=== PATIENT | male | born 1970 | race African-American/Black ===

== ENCOUNTER 2019-11-01 18:00 | Emergency (ER) | payer SELFPAY ==
[2019-11-01 18:50] LABS: ABSOLUTE EOSINOPHILS # (AUTO) 0.3 10^3/uL (0.0-0.6); ABSOLUTE MONOCYTES (AUTO) 0.7 10^3/uL (0.1-1.4); ABSOLUTE NEUT (AUTO) 2.8 10^3/uL (1.7-8.2); BASOPHILS % (AUTO) 0.7 % (0-2); EOSINOPHILS % (AUTO) 5.3 % (0-6); HEMATOCRIT 47.8 % (37.9-51.0); HEMOGLOBIN 16.4 g/dL (13.5-17.0); LYMPHOCYTES % (AUTO) 34.4 % (13-45); MEAN CORPUSCULAR HEMOGLOBIN 28.4 pg (27.0-33.4); MEAN CORPUSCULAR HGB CONC 34.4 g/dL (32.0-36.0); MEAN CORPUSCULAR VOLUME 83 fl (80-97); MONOCYTES % (AUTO) 11.4 % (3-13); PLATELET COUNT 274 10^3/uL (150-450); RED BLOOD COUNT 5.78 10^6/uL (4.35-5.55); RED CELL DISTRIBUTION WIDTH 15.4 % (11.5-14.0); SEGMENTED NEUTROPHILS % (AUTO) 48.2 % (42-78); TOTAL CELLS COUNTED % (AUTO) 100 %; WHITE BLOOD COUNT 5.8 10^3/uL (4.0-10.5)
[2019-11-01 19:02] LABS: ALKALINE PHOSPHATASE 95 U/L (38-126); ANION GAP 7 (5-19); ASPARTATE AMINO TRANSFERASE 41 U/L (17-59); BILIRUBIN,TOTAL 0.8 mg/dL (0.2-1.3); BLOOD UREA NITROGEN 22 mg/dL (7-20); CALCIUM 9.2 mg/dL (8.4-10.2); CARBON DIOXIDE 26 mmol/L (22-30); CHLORIDE 104 mmol/L (98-107); CREATINE KINASE 127 U/L (55-170); GLUCOSE 220 mg/dL (75-110); POTASSIUM 4.5 mmol/L (3.6-5.0); TOTAL PROTEIN 7.5 g/dL (6.3-8.2)
--- NOTE | 2019-11-01 19:04 | ER Document Report ---
ED General - General Chief Complaint: Shortness Of Breath Stated Complaint: SHORTNESS OF BREATH Notes: Patient is a 49-year-old -[place] male with a history of untreated hypertension, morbid obesity with a family history of CAD and diabetes who presents to the emergency department the chief complaint of shortness of breath. Patient reports over the past 5 to 6 months developing a shortness of breath. He states it was gradual in onset. Reports is been progressive slowly over the past 5 to 6 months. He states if he is at rest he feels okay but with any slight movements or exertion he becomes very short of breath. He is unsure of his routine blood pressures. Notes they are elevated not treated. He admits to smoking cigars. Mother has diabetes father of a heart attack just recently in his 60s. Patient denies any chest pain, cough or hemoptysis. No recent sick contacts. No fever. No rash, vomiting or diarrhea. No abdominal pain or dis tention. Admits to some associated intermittent lower extremity edema bilaterally. - Related Data Home Medications: Noncomplaint with HTN Past Medical History - Social History Smoking Status: Current Some Day Smoker Frequency of alcohol use: Occasional Family History: CAD, DM, Hypertension Patient has homicidal ideation: No - Past Medical History Cardiac Medical History: Reports: Hx Hypertension Review of Systems - Review of Systems Notes: As per HPI otherwise negative Physical Exam - Vital signs Vitals: Temp 98.4 F 11/01/19 18:18 - General General appearance: Appears well, Alert In distress: Mild - HEENT Head: Normocephalic, Atraumatic Eyes: Normal Conjunctiva: Normal Extraocular movements intact: Yes Pupils: PERRL Ears: Normal External canal: Normal Tympanic membrane: Normal Nasal: Normal Mouth/Lips: Normal Pharynx: Normal Neck: Normal, Supple - Respiratory Respiratory status: No respiratory distress Chest status: Nontender Breath sounds: Other - Moving air throughout. No abnormal breath sounds auscultated however limited by body habitus Chest palpation: Normal - Cardiovascular Rhythm: Regular Heart sounds: Normal auscultation - Abdominal Inspection: Morbidly Obese Bowel sounds: Normal Tenderness: Nontender - Extremities General upper extremity: Normal inspection, Nontender, Normal color, Normal ROM, Normal temperature General lower extremity: Normal inspection, Nontender, Normal color, Normal ROM, Normal temperature, Normal weight bearing. No: Sue's sign - Neurological Neuro grossly intact: Yes Cognition: Normal Orientation: AAOx4 Roger Coma Scale Eye Opening: Spontaneous Erie Coma Scale Verbal: Oriented Roger Coma Scale Motor: Obeys Commands Erie Coma Scale Total: 15 Speech: Normal Motor strength normal: LUE, RUE, LLE, RLE Sensory: Normal - Psychological Associated symptoms: Normal affect, Normal mood - Skin Skin Temperature: Warm Skin Moisture: Dry Skin Color: Normal Course - Re-evaluation Re-evalutation: 11/01/19 20:57 No evidence of heart failure or fluid overload. There is a suspicious area in the left lower lobe possibly pneumonia however the patient's history is more consistent with would likely be atelectasis but given the presence of his new onset diabetes with an elevated blood glucose of 220 we will treat as pneumonia. We discussed the new findings of diabetes and will start the patient on low- dose metformin. His EKG showed evidence of LVH consistent with strain secondary to chronically untreated hypertension. Also evidence of mild kidney injury in relation likely to the uncontrolled hypertension and a new diabetes. Patient will be started on low-dose lisinopril/HCTZ. He reports his mom has a blood pressure cuff and he will borrow it and monitor his pressures throughout the day keeping a log book over the next 2 weeks. We discussed dietary changes and exercise regimens. He will follow-up with community care clinic for continued ongoing evaluation and medical management. Discussed possibility of reversal of diabetes with proper exercise and dietary regimen. Likely could also be an improvement in his hypertension if he loses weight and maintains a more healthy lifestyle though he likely will require antihypertensives for life due to essential hypertension. His kidney function will need to be monitored by his primary doctor. I explained all this to the patient in great details including possible side effects of the new medications including lisinopril with angio edema and or chronic dry cough. Possible side effects of overtreated hypertension and the need to discontinue the medication and report to the ER immediately. He understands all risks versus benefit of treatment and wishes to proceed. Counseled him regarding the close and timely importance of outpatient follow-up and advised to return here or any ER immediately with any new, persistent or worsening symptoms. He verbalized understood and agreed. 11/01/19 21:09 Based on patient's presenting vitals with an O2 sat of 96 on room air he is PERC negative. This was considered and felt to be unlikely in the clinical setting. - Vital Signs Vital signs: Temp Pulse Resp BP Pulse Ox 98.4 F 96 20 148/101 H 92 11/01/19 18:19 11/01/19 18:19 11/01/19 18:19 11/01/19 18:19 11/01/19 18:19 - Laboratory Result Diagrams: 11/01/19 18:24 11/01/19 18:24 Laboratory results interpreted by me: 11/01/19 11/01/19 18:24 18:24 RBC 5.78 H RDW 15.4 H BUN 22 H Creatinine 1.62 H Est GFR ( Amer) 55 L Est GFR (MDRD) Non-Af 46 L Glucose 220 H Discharge - Discharge Clinical Impression: Uncontrolled hypertension, Elevated serum creatinine, LVH (left ventricular hypertrophy) Diabetes mellitus with hyperglycemia Qualifiers: Diabetes mellitus type: type 2 Diabetes mellitus [employer] insulin use: without mcc use Qualified Code(s): E11.65 - Type 2 diabetes mellitus with hyperglycemia Pneumonia Qualifiers: Pneumonia type: due to unspecified organism Laterality: left Lung location: lower lobe of lung Qualified Code(s): J18.9 - Pneumonia, unspecified organism Condition: Stable Disposition: HOME, SELF-CARE Instructions: Atelectasis ([facility]), Diabetes ([facility]), High Blood Pressure, Requiring Treatment ([facility]), Pneumonia ([facility]) Additional Instructions: You have been diagnosed today with uncontrolled hypertension likely causing secondary effects of stress on the kidneys. You have also been found to be diabetic per your lab results today. You have a questionable area on x-ray that could be pneumonia versus atelectasis. Given the background of diabetes she will be treated as pneumonia for the time being. We will start you on low-dose lisinopril/HCTZ for blood pressure and low-dose metformin for diabetes. Please follow-up with the community care clinic for reevaluation of these conditions and for further outpatient management and care. Please do not hesitate to return here or any ER immediately with any new, persistent or worsening symptoms. Prescriptions: Amoxicillin 875 mg PO BID #20 tablet Metformin HCl [Glucophage 500 mg Tablet] 500 mg PO BID #60 tablet Lisinopril/Hydrochlorothiazide [Lisinopril-Hctz 10-12.5 mg Tab] 1 each PO DAILY #30 tablet Azithromycin [Zithromax 250 mg Tablet] 250 mg PO ASDIR PRN #6 tablet PRN Reason: [facility]errals: [facility] [NO LOCAL MD] - Follow up as needed
[2019-11-01 19:12] LABS: INTERNATIONAL RATION (INR) 0.94; PROTHROMBIN TIME 12.6 SEC (11.4-15.4)
[2019-11-01 19:13] LABS: PARTIAL THROMBOPLASTIN TIME 25.2 SEC (23.5-35.8)
[2019-11-01 19:14] LABS: CREATINE KINASE MB 1.49 ng/mL (<4.55)
--- NOTE | 2019-11-01 19:17 | RADIOLOGY REPORT (SQ) ---
EXAM DESCRIPTION: CHEST SINGLE VIEW IMAGES COMPLETED DATE/TIME: 11/01/2019 6:46 pm REASON FOR STUDY: Shortness of breath COMPARISON: None. EXAM PARAMETERS: NUMBER OF VIEWS: One view. TECHNIQUE: Single frontal radiographic view of the chest acquired. RADIATION DOSE: NA LIMITATIONS: None. FINDINGS: LUNGS AND PLEURA: Low lung volumes. Cannot exclude opacification in the left base. MEDIASTINUM AND HILAR STRUCTURES: No masses. Contour normal. HEART AND VASCULAR STRUCTURES: Heart normal in size. Normal vasculature. BONES: No acute findings. HARDWARE: None in the chest. OTHER: No other significant finding. IMPRESSION: Low lung volumes. Cannot exclude left lower lobe pneumonia. TECHNICAL DOCUMENTATION: JOB ID: [id number] 2010 [employer]- All Rights Reserved Reading location - IP/workstation name: [email or web address]
[2019-11-01 19:31] LABS: TROPONIN I < 0.012 ng/mL
--- NOTE | 2019-11-01 20:44 | EKG REPORT ---
SEVERITY:- ABNORMAL ECG - SINUS RHYTHM LEFT VENTRICULAR HYPERTROPHY INFERIOR INFARCT, AGE INDETERMINATE : Confirmed by: Esvin Molina MD 01-Nov-2019 20:43:38
[2019-11-01 21:27] VITALS: BP 168/109
== END 2019-11-01 21:29 | disposition home or self-care (01) ==
LOC: ER 18:00
DX: J18.9 Pneumonia, unspecified organism (principal); I51.7 Cardiomegaly; E11.65 Type 2 diabetes mellitus with hyperglycemia; I10 Essential (primary) hypertension; R94.4 Abnormal results of kidney function studies; R06.02 Shortness of breath; R60.0 Localized edema; E66.01 Morbid (severe) obesity due to excess calories; I25.10 Atherosclerotic heart disease of native coronary artery without angina pectoris; F17.210 Nicotine dependence, cigarettes, uncomplicated
CPT/HCPCS: 36415; 71045; 80053; 82550; 82553; 83880; 84484; 85025; 85610; 85730; 93005; 93010; 99285

== ENCOUNTER 2020-03-02 10:33 | Emergency (ER) | payer SELFPAY ==
[2020-03-02 10:46] VITALS: BP 183/117
[2020-03-02] MEDS ORDERED: LISINOPRIL 10 MG TABLET PO ONE (11:14)
[2020-03-02] MEDS ORDERED: HYDROCHLOROTHIAZIDE 12.5 MG TABLET PO ONE (11:14)
--- NOTE | 2020-03-02 11:20 | ER Document Report ---
HPI - HPI Time Seen by Provider: 03/02/20 11:09 Pain Level: 5 Notes: 50-year-old male patient presenting to the emergency department chief complaint of dental pain. Patient reports pain started last night. He denies any drainage from the area. Denies any fever or chills. He reports pain is to the right lower side. He does have a history of hypertension, states he is out of his medications. - ROS Systems Reviewed and Negative: Yes All other systems reviewed and negative - EENT Notes: Dental pain - REPRODUCTIVE Reproductive: DENIES: : Past Medical History - General Information source: Patient - Social History Smoking Status: Former Smoker Chew tobacco use (# tins/day): No Frequency of alcohol use: None Drug Abuse: None Family History: CAD, DM, Hypertension Patient has homicidal ideation: No - Past Medical History Cardiac Medical History: Reports: Hx Hypertension Endocrine Medical History: Reports: Hx Diabetes Mellitus Type 2 Vertical Provider Document - CONSTITUTIONAL Notes: PHYSICAL EXAMINATION: GENERAL: Well-appearing, well-nourished and in no acute distress. HEAD: Atraumatic, normocephalic. EYES: Pupils equal round extraocular movements intact, conjunctiva are normal. ENT: Erythema surrounding tooth #30, tooth mostly eroded away, no john abscess, no trismus. NECK: Normal range of motion LUNGS: No respiratory distress Musculoskeletal: Normal range of motion NEUROLOGICAL: Normal speech, normal gait. PSYCH: Normal mood, normal affect. SKIN: Warm, Dry, normal turgor, no rashes or lesions noted. Course - Re-evaluation Re-evalutation: Presentation is most consistent with likely an infected tooth. Airway is patent. Vitals within normal limits. Patient is able swallow without any difficulty. There is no significant facial swelling. No evidence of Clifford angina, apical abscess, or airway obstruction. Patient will be started on antibiotics. I've instructed to follow-up with dentistry as earliest ability for definitive management. At this time will discharge with return precautions and follow-up recommendations. Verbal discharge instructions given a the bed side and opportunity for questions given. Medication warnings reviewed. Patient is in agreement with this plan and has verbalized understanding of return precautions and the need for primary care follow-up in the next 24-72 hours. Patient's blood pressure and diabetes medications were also refilled for him today. I stressed the importance of him following up with a primary care provider or [facility]. Patient verbalized understanding and agreement with this plan. - Vital Signs Vital signs: Temp Pulse Resp BP Pulse Ox 98.7 F 94 20 183/117 H 97 03/02/20 11:12 03/02/20 10:44 03/02/20 10:44 03/02/20 10:44 03/02/20 10:44 Discharge - Discharge Clinical Impression: Dental abscess Hypertension Qualifiers: Hypertension type: unspecified Qualified Code(s): I10 - Essential (primary) hypertension Condition: Stable Disposition: HOME, SELF-CARE Additional Instructions: Presentation is most consistent with likely an infected tooth. Airway is patent. Vitals within normal limits. Patient is able swallow without any difficulty. There is no significant facial swelling. No evidence of Clifford angina, apical abscess, or airway obstruction. Patient will be started on antibiotics. I've instructed to follow-up with dentistry as earliest ability for definitive management. At this time will discharge with return precautions and follow-up recommendations. Verbal discharge instructions given a the bedside and opportunity for questions given. Medication warnings reviewed. Patient is in agreement with this plan and has verbalized understanding of return precautions and the need for primary care follow-up in the next 24-72 hours. I have sent in prescriptions for your antibiotics, blood pressure medication and diabetes medication. I am putting you back on the same blood pressure medication that you are on however it is not a combo pill as the combo pill is more expensive. Prescriptions: Metformin HCl [Glucophage 500 mg Tablet] 100 mg PO BID #60 tablet Hydrochlorothiazide 12.5 mg PO DAILY #30 capsule Penicillin V Potassium [Penicillin Vk 500 mg Tablet] 500 mg PO BID #20 tablet Lisinopril [Prinivil 10 mg Tablet] 10 mg PO DAILY #30 tablet Referrals: [facility] [Provider Group] - Follow up as needed
== END 2020-03-02 11:36 | disposition home or self-care (01) ==
LOC: ER 10:33
DX: K04.7 Periapical abscess without sinus (principal); I10 Essential (primary) hypertension; E11.9 Type 2 diabetes mellitus without complications
CPT/HCPCS: 99283